=== PATIENT | female | born 1970 | race Caucasian/White ===

== ENCOUNTER 2017-08-11 13:44 | Emergency (ER) | payer BC ==
[~2017-08-11] VITALS: Ht 160 cm; Wt 66.5 kg
[2017-08-11 15:01] LABS: HEMATOCRIT 37.1 % (36.0-46.0); HEMOGLOBIN 12.6 G/DL (11.9-15.5); MCH 30.8 PG (29.0-34.0); MCV 90.7 FL (83-99); PLATELET COUNT 274 K/uL (156-360); RBC DIS.WIDTH-CV 13.2 % (11.8-14.6); RBC DIS.WIDTH-SD 43.5 % (39-53); RED BLOOD COUNT 4.09 M/uL (3.80-5.20); WHITE BLOOD COUNT 7.5 K/uL (4.1-10.2)
[2017-08-11 15:12] LABS: CHLORIDE 103 mEq/L (99-109); POTASSIUM 3.9 mEq/L (3.7-5.4); SODIUM 137 mEq/L (136-147)
[2017-08-11 15:13] LABS: MAGNESIUM 1.8 mg/dL (1.3-2.7)
[2017-08-11 15:14] LABS: GLUCOSE 81 mg/dL (70-99)
[2017-08-11 15:17] LABS: ERTH.SED.RATE 6 MM/HR (0-20)
[2017-08-11 15:18] LABS: CREATININE 0.9 mg/dL (0.6-1.3); GFR ESTIMATE (CALCULATED) > 59 mL/min/
[2017-08-11 15:19] LABS: UREA NITROGEN (BUN) 10 mg/dL (9-23)
[2017-08-11 15:27] LABS: QUANTITATIVE HCG < 4.0 MIU/ML
[2017-08-11 16:40] LABS: THYROTROPIN (TSH) 1.6 MIU/L (0.4-5.5)
[2017-08-11 18:29] VITALS: BP 111/65
== END 2017-08-11 18:31 | disposition home or self-care (01) ==
LOC: EME 13:44
PROVIDERS: Emergency Medicine
DX: R55 Syncope and collapse (principal)
CPT/HCPCS: 70450; 71020; 80048; 83735; 84443; 84702; 85027; 85651; 86038; 93005; 99281; 99284